=== PATIENT | male | born 1940 | race Caucasian/White ===

== ENCOUNTER 2023-06-22 14:00 | Outpatient (RCR) | payer MEDICARE, OTHER, SELFPAY ==
--- NOTE | 2023-03-21 17:34 | OT.OPOE ---
OT Outpatient Ortho Eval OT Outpatient Ortho Eval* Start: 03/21/23 14:20 Freq: Status: Active Protocol: Document 03/21/23 17:03 LCN (Rec: 03/21/23 17:25 LCN [id number]) E-signed By Lena Inman, OTR/L, CLT OT OP Ortho Eval Details Complexity Complexity Low Insurance Information Insurance Information Medicare B Outpatient History/Precautions Current Condition/Medical Diagnosis Referring Provider Dr Matt Talbot (PCP is Dr. Molina) Treatment Diagnosis R trigger finger of MF, w pain and stiffness Date of Onset 12/15/22 Other Conditions anxiety, BPH with urinary frequency. 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 Also has background in history of technology and [employer]. Lives with his healthy Rachana. Has grown children in [facility] and [place]. ( 2 are dairy husbandry teacher with pharmaceuticals) Social History Hobbies managing family [facility], [facility], geneaology Ortho Subjective Subjective Subjective Mr Milo Christianson is an active 82 y /o male who noticed sharp pain and initial triggering 2022 when he used R palm to open a stuck jar. Has been feeling thick, stiff and full in her hand since then. Saw Dr. Talbot03/01/23 who refers pt to OT for conservative approach and may consider US guided cortisone in the future if needed. Pain Assessment Pain Present Pain Present Pain Reported Location R MF pip, MCP head. Description Tightness,Pressure,Dull, Achy, Pulling,With Movement, Heaviness Intensity 3 Range of Motion and Strength Hand/Finger/Thumb Range of Motion and Strength Hand/Finger/Thumb Range of Motion and Makes 80% fist with IF/MF/RF Strength of R hand pulling into his palmar MP heads of IF/MF. Palpable nodule at A1 fredy of R MF. Finds that cold makes it worse and heat feels better. 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 Also felt looser after going bowling 3 weeks ago. EDEMA-- at prox phal of MF R is 7.0 cm and L is 6.3 cm. Web space is 20.4 cm R and 19. 3 cm L. Gritty thick texture at IF/MF MCP heads, pulling in palm when gripping, pinching. Composite flexion of IF to 1.7 of .5 cm, MF to 2.7 cm, RF to 1.4 and SF to .3 cm. PIP flexion is limited to 95 of 100 IF, MF 67 and RF 85 and has general stiffness at end ROM of MCP flexion. Gets 1-2/10 pressure during gripping/pinch tests in R hand /MF and palm. Hand Pinch/Fur Pointer Strength Hand Right Fur Pointer Strength Position 1 (lbs) 50 Lateral Pinch Strength (lbs) 15 Three Point Pinch (lbs) 11 Left Fur Pointer Strength Position 1 (lbs) 74 Lateral Pinch Strength (lbs) 17 Three Point Pinch (lbs) 10 OT Problems Problems Problems Decreased Strength,Decreased Range of Motion,Decreased Dexterity,Pain,Gripping, Pinching Problems Comments pulling boot laces. Other Problems Writing,Opening Containers, Dressing,Fasteners Patient Potential Excellent Assessment Assessment Assessment With Milo's sx of R index finger edema, pain, ROM and strength loss of R hand/ digits limiting daily tasks, he would benefit from skilled OT to address these areas. Pt starting to feel more stiff in IF and RF fingers as well, so this is a very appropriate referral. Occupational Therapy Treatment Plan - OP Potential Rehabilitation Potential Excellent Set Goals Goals Set with Patient Yes Goals Goals In 8-10weeks, Milo will demonstrate:? 1) Decreased pn to <2/10 80% of the time with sustained gripping, carrying groceries, reading books and using hand tools. 2) I HEP for stretching, gradual strengthening and self mgmt strategies. 3) improved R spiritual minister strength to 60# with R digit pain < 1/10. 4)??Pt to be fit with functional bracing (for trigger finger ring) and use adaptive strategies to protect joint integrity to support less pain with ADL. Treatment Plan Treatment Plan Evaluation,Edema Control,Joint Mobilization,Manual Therapy, Ultrasound,Therapeutic Exercise,Self Care/Home Management,Education Expected Frequency 1-2x Week Expected Duration 8-10 Weeks Home Program Home Program Home Program Initiated Home Program Specifics Warm water soaks during joint blocking exercises at DIP, PIP , MCP. Wear trigger finger brace 22 of 24 hours. Recertification Information Recertification Information Initial Certification Date 03/21/23 Recertification Due Date 06/19/23 Provider Signature Shows Agreement With POC & Medical Necessity Physician Comment/Change Comment or Changes Physician NPI Number #
== END 2023-10-20 23:59 | disposition home or self-care (01) ==
PROVIDERS: PCP Family Medicine; Visit Provider Orthopaedic Surgery
DX: M65.331 Trigger finger, right middle finger (principal); Z51.89 Encounter for other specified aftercare
CPT/HCPCS: 97035; 97110; 97140; 97165; 97535; X5282